=== PATIENT | female | born 1990 | race Caucasian/White ===

== ENCOUNTER 2016-09-20 20:33 | Emergency (ER) | payer SELFPAY ==
[2016-09-20 23:04] LABS: RBC URINE 2 /hpf (0-3); URINE BACTERIA FEW (<OCC); URINE BILIRUBIN NEGATIVE (NEGATIVE); URINE BLOOD NEGATIVE (NEGATIVE); URINE COLOR Yellow (YELLOW); URINE GLUCOSE (UA) NORMAL (Normal); URINE KETONE 2+ mg/dL (NEGATIVE); URINE LEUKOCYTE ESTERASE NEG Leu/uL (Negative); URINE PROTEIN 1+ mg/dL (NEGATIVE); WBC URINE 4 /hpf (0-5)
[2016-09-20] MEDS ORDERED: Sodium Chloride 0.9% 1,000 ML IV ONE (23:06)
[2016-09-20 23:31] LABS: BASO # 0.1 K/uL (0.0-0.2); BASO % 0.7 % (0.0-2.0); EOS # 0.1 K/uL (0.0-0.7); EOS % 0.5 % (0.0-4.0); HEMATOCRIT 39.9 % (34.0-47.0); LYMPH # 2.3 K/uL (1.0-4.3); MEAN CELL VOLUME 79.6 fL (81.0-99.0); MEAN CORPUSCULAR HEMOGLOBIN 26.7 pg (27.0-31.0); MEAN CORPUSCULAR HGB CONC 33.6 g/dL (33.0-37.0); MONO # 0.7 K/uL (0.0-0.8); RED CELL DISTRIBUTION WIDTH 12.6 % (11.5-14.5); WHITE BLOOD COUNT 10.3 K/uL (4.8-10.8)
[2016-09-20] MEDS ORDERED: Sodium Chloride 0.9% 1,000 ML ONE (23:31)
[2016-09-20 23:39] LABS: CHLORIDE 97 mmol/L (98-107)
[2016-09-20 23:40] LABS: POTASSIUM 4.1 mmol/L (3.6-5.2); SODIUM 135 mmol/L (132-148)
[2016-09-20 23:42] LABS: ALB/GLOB RATIO 1.4 (1.0-2.1); ALKALINE PHOSPHATASE 59 U/L (38-126); ALT/SGPT 67 U/L (9-52); AST/SGOT 40 U/L (14-36); BILIRUBIN,TOTAL 0.5 mg/dL (0.2-1.3); BLOOD UREA NITROGEN 6 mg/dL (7-17); CARBON DIOXIDE 23 mmol/L (22-30); GFR AFRICAN-AMERICAN > 60; TOTAL PROTEIN 7.5 g/dL (6.3-8.3)
[2016-09-20 23:43] LABS: CALCIUM 9.2 mg/dl (8.6-10.4); GLUCOSE,RANDOM 86 mg/dL (65-105)
--- NOTE | 2016-09-21 00:50 | C.PDOC ---
Time Seen by Provider: 09/20/16 22:31 Chief Complaint (Nursing): Abdominal Pain History Per: Patient, Family, Postpartum Nurse History/Exam Limitations: language barrier Onset/Duration Of Symptoms: Days (about 1 week) Current Symptoms Are (Timing): Still Present Location Of Pain/Discomfort: Epigastric, Suprapubic Radiation Of Pain To:: None Quality Of Discomfort: "Pain" Associated Symptoms: Nausea, Vomiting Alleviating Factors: None Additional History Per: Prior Records Abnormal Vaginal Bleeding: No Last Menstral Period: "2 months ago" Past Medical History Reviewed: Historical Data, Nursing Documentation, Vital Signs Vital Signs: Last Vital Signs Temp 98.2 F 09/20/16 22:00 Pulse 103 H 09/20/16 22:00 Resp 16 09/20/16 22:00 BP 115/76 09/20/16 22:00 Pulse Ox 99 09/21/16 00:50 - Medical History PMH: No Chronic Diseases Surgical History: No Surg Hx Family History: States: Unknown Family Hx - Social History Hx Alcohol Use: Yes Hx Substance Use: No - Immunization History Hx Tetanus Toxoid Vaccination: No Hx Influenza Vaccination: No Hx Pneumococcal Vaccination: No Review Of Systems Except As Marked, All Systems Reviewed And Found Negative. Constitutional: Positive for: Malaise Cardiovascular: Negative for: Chest Pain Respiratory: Negative for: Cough, Shortness of Breath Gastrointestinal: Positive for: Nausea, Vomiting, Abdominal Pain Genitourinary: Positive for: Pelvic Pain. Negative for: Dysuria Musculoskeletal: Negative for: Neck Pain, Back Pain Skin: Negative for: Rash Neurological: Negative for: Weakness, Numbness, Seizures, Altered Mental Status Physical Exam - Physical Exam Appears: Non-toxic, No Acute Distress Skin: Normal Color, Warm, Dry, No Rash Head: Atraumatic, Normacephalic Eye(s): bilateral: PERRL, EOMI Neck: Normal ROM, Supple Cardiovascular: Rhythm Regular Respiratory: Normal Breath Sounds, No Accessory Muscle Use Gastrointestinal/Abdominal: Soft, Tenderness (suprapubic), No Guarding, No Rebound Back: No CVA Tenderness Extremity: Normal ROM Neurological/Psych: Oriented x3, Normal Motor, Normal Sensation ED Course And Treatment - Laboratory Results Result Diagrams: 09/20/16 23:28 09/20/16 23:28 Urine POC: Positive O2 Sat by Pulse Oximetry: 99 Pulse Ox Interpretation: Normal Disposition - Disposition Disposition Time: 01:00 Condition: FAIR - Clinical Impression Clinical Impression: Abdominal pain, Physician Patient Turnover Patient Signed Over To: Niyah Dempsey Handoff Comments: to f/up Pelvic US.
--- NOTE | 2016-09-21 02:34 | US ---
EXAM: US First Trimester, Transabdominal CLINICAL HISTORY: 25 years old, female; Pain; complicated by abdominal or pelvic pain; Lower; First trimester; Gestational age or lmp: 08/06/16; ; Additional info: Pain, R/O ectopic. TECHNIQUE: Real-time transabdominal obstetrical ultrasound of the maternal pelvis and a first trimester with image documentation. COMPARISON: No relevant prior studies available. FINDINGS: Gestation: pole is present with a crown-rump length of 0.9 CM compatible with an estimated ultrasound age of 6.6 weeks. heart motion observed at 125 beats per minute. A gestational sac is present in the endometrium. A yolk sac is present. Placenta/amniotic fluid: Cannot be adequately evaluated due to the early gestational age. Uterus/cervix: Unremarkable. No myometrial mass. Ovaries: Both ovaries demonstrate normal waveforms without evidence for torsion. The right ovary measures 4.1 x 2.7 x 4.0 CM. Left ovary measures 3.0 x 1.3 x 2.1 CM. Free fluid: No free fluid. Tubes, lines and devices: Mean sac diameter measures 2.2 CM compatible with an estimated old shunt age of 6.6 weeks. IMPRESSION: 1. Both ovaries demonstrate normal waveforms without evidence for torsion. 2. pole is present with a crown-rump length of 0.9 CM compatible with an estimated ultrasound age of 6.6 weeks. 3. heart motion observed at 125 beats per minute.
[2016-09-21 03:11] VITALS: BP 94/61; PULSE 73; RESP 18; TEMP 98; O2SAT 97
== END 2016-09-21 03:11 | disposition home or self-care (01) ==
LOC: C.ER 20:33
DX: O26.891 Other specified pregnancy related conditions, first trimester (principal); R10.30 Lower abdominal pain, unspecified; Z3A.01 Less than 8 weeks gestation of pregnancy
CPT/HCPCS: 76801; 80053; 81001; 83690; 84702; 84703; 85025; 87086; 96361; 96374; 96375; 99285; J2765; J7040